=== PATIENT | female | born 1975 | race Caucasian/White ===

== ENCOUNTER 2023-05-30 13:17 | Outpatient (CLI) | payer OTHER, SELFPAY ==
[2023-05-30 13:56] LABS: Basophils # 0.1 10^3/uL (0.0-0.1); Basophils % 1.4 %; Eosinophils # 0.1 10^3/uL (0.0-0.8); Hematocrit 36.8 % (36-47); Lymphocytes # 2.9 10^3/uL (0.8-4.8); Mean Corpuscular HGB Conc 32.3 g/dL (30-55); Mean Corpuscular Hemoglobin 29.2 pg (27-33); Mean Corpuscular Volume 90.2 fl (85-98); Mean Platelet Volume 11.1 fL (7.4-10.4); Monocytes # 0.6 10^3/uL (0.2-0.9); Monocytes % 8.5 %; Neutrophils # 2.77 10^3/uL (1.8-7.7); Neutrophils % 42.9 %; Nucleated Red Blood Cells % 0 %; Platelet Count 200 10^3/cmm (157-399); Red Blood Count 4.08 10^6/uL (3.85-5.65); Red Cell Distribution Width 15.4 % (12.1-15.1); White Blood Count 6.46 10^3/uL (3.29-11.43)
[2023-05-30 14:11] LABS: Ammonia 36 umol/L (11-51); Erythrocyte Sedimentation Rate 14 mm/hr (0-15)
[2023-05-30 14:12] LABS: INR 1.34 (0.8-1.2)
[2023-05-30 14:13] LABS: Partial Thromboplastin Time 33.4 SECONDS (23.9-36.7)
[2023-05-30 14:34] LABS: Hepatitis A Antibody IgM Non-Reactive (Nonreactive); Hepatitis B Core AB, Total Non-Reactive (Nonreactive); Hepatitis B Surface Antigen Non-Reactive (Nonreactive); Hepatitis C Virus Antibody Non-Reactive (Nonreactive)
[2023-05-30 14:35] LABS: 25 Hydroxy Vitamin D 21 ng/mL (30-100); Alanine Aminotransferase 27 U/L (0-33); Albumin Level 3.7 g/dL (3.5-5.2); Alkaline Phosphatase 197 U/L (35-105); Anion Gap 13.3 (5-19); Aspartate Amino Transferase 73 U/L (0-32); Blood Urea Nitrogen 7 mg/dL (6-20); Calcium 8.3 mg/dL (8.5-10.5); Cancer Antigen 19 9 52.12 U/mL (0-35); Carbon Dioxide 27 mmol/L (22-29); Chloride 102 mmol/L (98-107); Chol HDL Ratio 4.55 mg/dL (0.0-4.40); Cholesterol 132 mg/dL (0-200); Ferritin 26 ng/mL (15-150); Glomerular Filtration Rate 108.1 mL/min (90-130); Glucose 107 mg/dL (65-115); HDL Cholesterol 29 mg/dL (60-100); Iron 45 ug/dL (37-145); LDL Cholesterol Calculated 83 mg/dL (50-129); LDL HDL Ratio 2.86 RATIO (0.00-3.22); Magnesium 1.3 mg/dL (1.7-2.3); Osmolality Calculated 286 mOsm/kg (285-295); Potassium 3.3 mmol/L (3.5-5.1); Sodium 139 mmol/L (136-145); Total Bilirubin 1.2 mg/dL (0.15-1.2); Total Protein 6.7 g/dL (6.6-8.7); Triglycerides 98 mg/dL (0-150); Vitamin B12 700 pg/mL (232-1245)
[2023-05-30 14:45] LABS: Folate Level 2.9 ng/mL (4.8-37.3)
[2023-05-30 14:54] LABS: HIV 1 & 2 Antibody Non-Reactive (Non-Reactiv); HIV 1 & 2 Antigen Non-Reactive (Non-Reactiv)
[2023-05-30 15:03] LABS: Free T4 Free Thyroxine 0.93 ng/dL (0.82-1.77)
[2023-06-02 11:24] LABS: Alpha 1 Antitrypsin 101 mg/dL (83-199)
[2023-06-02 17:44] LABS: Anti-Nuclear Antibody Screen NEGATIVE (NEGATIVE)
== END 2023-05-30 13:18 | disposition home or self-care (01) ==
LOC: LAB 13:20
PROVIDERS: PCP Family Medicine; Visit Provider Family Medicine
DX: E83.42 Hypomagnesemia (principal); K76.0 Fatty (change of) liver, not elsewhere classified; R79.89 Other specified abnormal findings of blood chemistry; R16.0 Hepatomegaly, not elsewhere classified; E87.6 Hypokalemia; R59.0 Localized enlarged lymph nodes; B19.20 Unspecified viral hepatitis C without hepatic coma; Z11.4 Encounter for screening for human immunodeficiency virus [HIV]
CPT/HCPCS: 36415; 80053; 80061; 82103; 82105; 82140; 82247; 82248; 82306; 82607; 82728; 82746; 83540; 83735; 84439; 84443; 85025; 85610; 85651; 85730; 86038; 86301; 86705; 86706; 86709; 86803; 87340; 87806

== ENCOUNTER → 2023-10-01 15:00 | Outpatient (BNVA) | payer OTHER, SELFPAY | PROVIDERS: PCP Family Medicine; Visit Provider Family Medicine | DX: E87.6 Hypokalemia (principal); E83.42 Hypomagnesemia; K21.9 Gastro-esophageal reflux disease without esophagitis | CPT/HCPCS: 80053; 83735 ==

== ENCOUNTER → 2023-10-20 09:10 | Outpatient (BNVA) | payer OTHER, SELFPAY | PROVIDERS: PCP Family Medicine; Visit Provider Family Medicine | DX: E87.6 Hypokalemia (principal) | CPT/HCPCS: 80048 ==

== ENCOUNTER → 2024-02-10 14:09 | Outpatient (BNVA) | payer OTHER, SELFPAY | PROVIDERS: PCP Family Medicine; Visit Provider Family Medicine | DX: R18.8 Other ascites (principal); I81 Portal vein thrombosis; K76.6 Portal hypertension; K74.60 Unspecified cirrhosis of liver; J30.9 Allergic rhinitis, unspecified; F41.9 Anxiety disorder, unspecified; R30.0 Dysuria; F10.20 Alcohol dependence, uncomplicated; J01.90 Acute sinusitis, unspecified | CPT/HCPCS: 81000 ==

== ENCOUNTER → 2024-03-25 14:14 | Outpatient (BNVA) | payer OTHER, SELFPAY | PROVIDERS: PCP Family Medicine; Visit Provider Family Medicine | DX: R10.9 Unspecified abdominal pain (principal); N39.0 Urinary tract infection, site not specified | CPT/HCPCS: 81000 ==

== ENCOUNTER → 2024-08-06 11:20 | Outpatient (BNVA) | payer BC, SELFPAY | PROVIDERS: PCP Family Medicine; Visit Provider Family Medicine | DX: R79.89 Other specified abnormal findings of blood chemistry (principal); E55.9 Vitamin D deficiency, unspecified; E46 Unspecified protein-calorie malnutrition; E53.8 Deficiency of other specified B group vitamins; K76.89 Other specified diseases of liver; E87.6 Hypokalemia; T50.2X5A Adverse effect of carbonic-anhydrase inhibitors, benzothiadiazides and other diuretics, initial encounter; X58.XXXA Exposure to other specified factors, initial encounter | CPT/HCPCS: 80053; 80061; 82306; 82607; 82746; 83735; 84443; 85025 ==

== ENCOUNTER → 2024-11-24 13:12 | Outpatient (BNVA) | payer BC, SELFPAY | PROVIDERS: PCP Family Medicine; Visit Provider Nurse Practitioner Family | DX: N39.0 Urinary tract infection, site not specified (principal) | CPT/HCPCS: 80053; 81000; 85025; 87086 ==

== ENCOUNTER 2024-12-09 15:42 | Outpatient (CLI) | payer BC, SELFPAY ==
--- NOTE | 2024-12-09 15:45 | CTR_ITS ---
PROCEDURE INFORMATION: Exam: CT Abdomen And Pelvis Without Contrast Exam date and time: 12/09/2024 3:47 PM Age: 49 years old Clinical indication: Left flank pain with microscopic hematuria since nov 24; Additional info: R31.9 - hematuria, unspecified, renal stone protocol. TECHNIQUE: Imaging protocol: Computed tomography of the abdomen and pelvis without contrast. Radiation optimization: All CT scans at this facility use at least one of these dose optimization techniques: automated exposure control; mA and/or kV adjustment per patient size (includes targeted exams where dose is matched to clinical indication); or iterative reconstruction. COMPARISON: No relevant prior studies available. RADIATION DOSE METRICS: Total DLP (mGy-cm): 300.24 FINDINGS: Lower chest: Heart size is normal and the lungs are clear. Liver: Prominent right lobe may represent Adan's lobe. No focal mass. Gallbladder and biliary ducts: Normal. No calcified stones. No ductal dilation. Pancreas: Normal. No ductal dilation. Spleen: Normal. No splenomegaly. Adrenal glands: Normal. No mass. Kidneys and ureters: Possible nephrocalcinosis with 2.8 mm calculus on the left. No hydronephrosis. No ureteric calculi. 9.6 mm round low-density lesion mid left kidney. This is homogeneous and has a CT number of 11.4 HU. This felt to represent a cyst and no follow-up imaging recommended.Benign simple renal cyst requiring no follow-up. (Reference: Nuha) References: Nuha AGUILAR, et al. Bosniak Classification of Cystic Renal Masses, Version 2019: An Update Proposal and Needs Assessment. Radiology. 2019;292(2):475-488. Stomach and bowel: Small hiatal hernia. Mildly distended stomach containing partially digested food stuff may represent recent ingestion of the meal or delayed gastric emptying/ stasis. Small bowel unremarkable. [id number] amount of fecal material in the colon. No wall thickening or obstruction. Appendix: Appendix within normal limits in diameter. No significant wall thickening and no surrounding stranding. Presence of small appendicolith within the appendiceal lumen. Intraperitoneal space: Unremarkable. No free air. No significant fluid collection. Vasculature: Mild atherosclerosis. No abdominal aortic aneurysm. Lymph nodes: Unremarkable. No enlarged lymph nodes. Urinary bladder: Unremarkable as visualized. Reproductive: Unremarkable as visualized. Small focus of air in the vagina. Bones/joints: Degenerative changes pubic bones at symphysis pubis. Soft tissues: Small umbilical hernia containing fat. Small inguinal lymph nodes not significant in size. CT/CT kidney stone [id number] IMPRESSION: 1. Nephrocalcinosis. Small nonobstructing left renal calculus. No hydronephrosis or ureteric calculus. Small left renal cyst. 2. Some prominence right lobe of the liver may represent a Adan's lobe. 3. Mild atherosclerosis. 4. Appendicoliths without findings of acute appendicitis. 5. Mildly distended stomach containing partially digested food stuff which may represent recent ingestion of the meal or delayed gastric emptying/stasis. 6. Degenerative changes pubic bones at symphysis pubis. 7. Small umbilical hernia containing fat.
== END 2024-12-09 15:43 | disposition home or self-care (01) ==
PROVIDERS: PCP Family Medicine; Visit Provider Family Medicine
DX: N28.9 Disorder of kidney and ureter, unspecified (principal); R31.9 Hematuria, unspecified; N28.1 Cyst of kidney, acquired; K44.9 Diaphragmatic hernia without obstruction or gangrene; K38.1 Appendicular concretions; K42.9 Umbilical hernia without obstruction or gangrene
CPT/HCPCS: 74176; 81000; 87086